=== PATIENT | male | born 1950 | race Caucasian/White ===

== ENCOUNTER → 2019-03-23 11:38 | Outpatient (CLI) | payer MEDICARE, SELFPAY ==
[2019-03-23 14:06] LABS: Hematocrit 45.4 % (40-54); Hemoglobin 14.2 g/dL (13.0-16.5); Mean Corp Hgb Conc 31.3 g/dL (32-36); Mean Corpuscular Hgb 26.7 pg (27.0-32.0); Mean Corpuscular Volume 85.5 fL (80-94); Mean Platelet Vol. 9.9 fl (6.2-12.0); Platelet Count 282 K/mm3 (150-450); RBC Distribution Width CV 15.8 % (11.6-14.6); RBC Distribution Width SD 49.8 fl (35.1-43.9); Red Blood Count 5.31 M/mm3 (4.6-6.2); White Blood Count 5.4 K/mm3 (4.4-11.0)
[2019-03-23 14:29] LABS: CRP < 2.90 mg/L (0.0-3.0)
== END ==
PROVIDERS: Referring Provider Internal Medicine Gastroenterology; Visit Provider Internal Medicine Gastroenterology
DX: K51.90 Ulcerative colitis, unspecified, without complications (principal)
CPT/HCPCS: 36415; 85027; 86140